=== PATIENT | female | born 1985 | race Caucasian/White ===

== ENCOUNTER → 2018-01-13 14:55 | Outpatient (CLI) | payer OTHER, SELFPAY ==
[2018-01-13 17:50] LABS: T3 Total - Triiodothyronine 1.48 ng/mL (0.6-1.81)
[2018-01-13 17:51] LABS: T4 Free Direct 0.84 ng/dL (0.76-1.46); Thyroid Stim Hormone (TSH) 2.02 uIU/mL (0.358-3.74)
== END ==
PROVIDERS: Family Provider Family Medicine; PCP Family Medicine; Visit Provider Family Medicine
DX: R53.83 Other fatigue (principal)
CPT/HCPCS: 36415; 84439; 84443; 84480

== ENCOUNTER → 2019-08-25 09:54 | Outpatient (CLI) | payer OTHER, SELFPAY ==
[2019-08-25 09:48] VITALS: BMI 35.2
--- NOTE | 2019-08-25 10:02 | RAD_ITS ---
STUDY: X-RAY CHEST REASON FOR EXAM: Female, 34 years old. COUGH X 9 DAYS WITH FEVER. NOT GETTING ANY BETTER. TECHNIQUE: PA and lateral views of the chest. COMPARISON: None. FINDINGS: The lungs are clear and expanded. There is no demonstrated pleural abnormality. Normal size heart. Normal mediastinum and segundo. Normal visualized pulmonary arteries. Normal visualized aortic arch and descending thoracic aorta. Normal visualized thoracic spine. Normal visualized ribs, clavicles, and shoulders. There is no demonstrated abnormality of the visualized soft tissue structures of the upper abdomen. RAD/Chest PA and Lateral IMPRESSION: Normal x-ray examination of the chest. Electronically Signed: Javid Fonseca, at 11:08 EDT , Service support ,
== END ==
PROVIDERS: PCP Family Medicine; Referring Provider Physician Assistant; Visit Provider Physician Assistant
DX: R05 Cough (principal)
CPT/HCPCS: 71046

== ENCOUNTER → 2023-01-06 | Outpatient (CLI) | payer OTHER, SELFPAY ==
[2023-01-06 13:53] LABS: Hemoglobin A1c 5.5 % (3.8-5.6)
[2023-01-06 13:54] LABS: Free T3 2.5 pg/mL (2.18-3.98); T4 Free Direct 0.91 ng/dL (0.76-1.46); Thyroid Stim Hormone (TSH) 1.46 uIU/mL (0.358-3.74)
[2023-01-08 14:10] LABS: Thyroglobulin Antibody 2.1 IU/mL (0.0-0.9); Thyroid Peroxidase AB < 9 IU/mL (0-34)
== END | disposition home or self-care (01) ==
PROVIDERS: PCP Family Medicine; Referring Provider Family Medicine; Visit Provider Family Medicine
DX: E03.9 Hypothyroidism, unspecified (principal); R73.01 Impaired fasting glucose
CPT/HCPCS: 83036; 84439; 84443; 84481; 86376; 86800

== ENCOUNTER → 2023-07-15 | Outpatient (CLI) | payer OTHER, SELFPAY ==
[2023-07-15 08:45] LABS: ALB/GLOB Ratio 0.8 RATIO (0.9-2.4); AST(SGOT) 25 U/L (15-37); Alanine Aminotransfer ALT/SGPT 45 U/L (13-56); Albumin, Serum 3.9 g/dL (3.2-5.0); Alkaline Phosphatase 70 U/L (45-117); Anion Gap 7 (5-15); BUN 10 mg/dL (7-18); BUN/Creat Ratio 11.7 RATIO (10-20); Calcium,Total 9.7 mg/dL (8.5-10.1); Chloride 107 mmol/L (98-107); Cholesterol 237 mg/dL (200); Creatinine, Serum 0.86 mg/dL (0.55-1.02); EST Glomerular Filtration Rate 80 mL/min (>60); Est Glom Filt Rate - Afr Amer 97 mL/min (>60); Free T3 2.6 pg/mL (2.18-3.98); Globulin 4.6 g/dL (2.2-4.2); Glucose 118 mg/dL (74-106); High Density Lipoprotein 38 mg/dL; Potassium 3.9 mmol/L (3.5-5.1); Protein, Total 8.5 g/dL (6.4-8.2); Sodium Level 138 mmol/L (136-145); T4 Free Direct 0.89 ng/dL (0.76-1.46); Thyroid Stim Hormone (TSH) 3.69 uIU/mL (0.358-3.74); Triglycerides 280 mg/dL; Very Low Density Lipoprotein 56 mg/dL (5-40)
== END | disposition home or self-care (01) ==
PROVIDERS: PCP Family Medicine; Visit Provider Family Medicine
DX: Z51.81 Encounter for therapeutic drug level monitoring (principal); E78.1 Pure hyperglyceridemia; E03.9 Hypothyroidism, unspecified
CPT/HCPCS: 36415; 80053; 80061; 84439; 84443; 84481

== ENCOUNTER → 2024-04-11 | Outpatient (CLI) | payer OTHER, SELFPAY ==
[2024-04-11 15:41] LABS: Absolute Lymphocyte Count 2.05 X10^3/uL (0.83-4.51); Absolute Neutrophil Count 5.1 X10^3/uL (2.0-7.7); Basophil# 0.03 X10^3/uL; Basophil% 0.4 % (0-1); Eosinophil# 0.18 X10^3/uL; Eosinophils% 2.2 % (0-5); Hematocrit 38.7 % (37-47); Hemoglobin 12.7 g/dL (12.0-15.0); Lymphocyte # 2.05 X10^3/ul (0.83-4.51); Lymphocyte % 25.3 % (19-41); Mean Corp Hgb Conc 32.8 g/dL (32-36); Mean Corpuscular Hgb 29.5 pg (27.0-32.0); Mean Corpuscular Volume 89.8 fL (81-99); Mean Platelet Vol. 10.6 fl (6.2-12.0); Monocyte# 0.75 X10^3/uL; Monocyte% 9.2 % (0-10); NRBC Flagged by Analyzer 0 % (0-5); Neutrophil # 5.05 X10^3/uL (2.7-7.7); Neutrophil % 62.3 % (47-70); Platelet Count 268 K/mm3 (150-450); RBC Distribution Width CV 13.3 % (11.6-14.6); RBC Distribution Width SD 43.6 fl (35.1-43.9); Red Blood Count 4.31 M/mm3 (4.2-5.4); White Blood Count 8.1 K/mm3 (4.4-11.0)
[2024-04-11 16:36] LABS: AST(SGOT) 64 U/L (15-37); Alanine Aminotransfer ALT/SGPT 118 U/L (13-56); Albumin, Serum 3.9 g/dL (3.2-5.0); Alkaline Phosphatase 57 U/L (45-117); Anion Gap 5 (5-15); BUN 14 mg/dL (7-18); BUN/Creat Ratio 17.7 RATIO (10-20); Calcium,Total 9.8 mg/dL (8.5-10.1); Chloride 108 mmol/L (98-107); Creatinine, Serum 0.79 mg/dL (0.55-1.02); EST Glomerular Filtration Rate 87 mL/min (>60); Est Glom Filt Rate - Afr Amer 105 mL/min (>60); Estradiol 91.9 pg/mL; Follicle Stimulating Hormone 2.9 mIU/mL; Free T3 2.2 pg/mL (2.18-3.98); Globulin 4.1 g/dL (2.2-4.2); Glucose 83 mg/dL (74-106); Potassium 3.9 mmol/L (3.5-5.1); Sodium Level 138 mmol/L (136-145)
[2024-04-13 16:10] LABS: DHEA Sulfate 72.7 ug/dL (57.3-279.2); Thyroglobulin Antibody < 1.0 IU/mL (0.0-0.9); Thyroid Peroxidase AB 10 IU/mL (0-34)
[2024-04-18 20:08] LABS: Age Gdln ACOG Testing 30-65 (.); HPV APTIMA, High Risk Negative (Negative)
[2024-04-19 08:41] LABS: HPV Reflexed? YES, CHARGE PATIENT
== END | disposition home or self-care (01) ==
PROVIDERS: PCP Family Medicine; Referring Provider Family Medicine; Visit Provider Family Medicine
DX: Z12.4 Encounter for screening for malignant neoplasm of cervix (principal); E03.9 Hypothyroidism, unspecified; N92.1 Excessive and frequent menstruation with irregular cycle; N93.8 Other specified abnormal uterine and vaginal bleeding; Z51.81 Encounter for therapeutic drug level monitoring
CPT/HCPCS: 36415; 80053; 82627; 82670; 83001; 83002; 84144; 84439; 84443; 84481; 85025; 86376; 86800; 87624; 88175; 82626; G0145

== ENCOUNTER → 2024-05-02 | Outpatient (CLI) | payer OTHER, SELFPAY ==
--- NOTE | 2024-05-02 12:44 | US_ITS ---
INDICATION: AUB, ENLARGED UTERUS EXAMINATION: Ultrasound US Pelvis Non-OB Complete TECHNIQUE: Transabdominal pelvic ultrasound was performed. The patient refused endovaginal study. Grayscale, spectral waveform, and color flow Doppler evaluation of the adnexa. COMPARISON: No relevant prior comparison study available FINDINGS: UTERUS: Anteverted. The uterus measures 9.1 x 5.1 x 4.6 cm. There is no uterine mass. The endometrial stripe measures 6 mm in AP diameter which is within normal limits. RIGHT OVARY: 2.9 x 2 x 1.7 cm. Non-enlarged, normal echogenicity. There is normal arterial inflow and venous outflow present in the right ovary. LEFT OVARY: 3.3 x 2 x 1.9 cm. Non-enlarged, normal echogenicity. There is normal arterial inflow and venous outflow present in the left ovary. FREE FLUID: None. The bladder is visualized and has a prevoid volume of 184 cc. US/Pelvic (Non ) IMPRESSION: Unremarkable pelvic ultrasound. Electronically Signed: Dariel Multani MD at 14:09 EST ,
== END | disposition home or self-care (01) ==
LOC: US 12:41
PROVIDERS: PCP Family Medicine; Referring Provider Family Medicine; Visit Provider Family Medicine
DX: N93.8 Other specified abnormal uterine and vaginal bleeding (principal); N92.1 Excessive and frequent menstruation with irregular cycle; N85.2 Hypertrophy of uterus
CPT/HCPCS: 76856

== ENCOUNTER 2024-07-05 16:30 | Emergency (ER) | payer OTHER, SELFPAY ==
[2024-07-05] VITALS (7 sets, daily range): BP systolic 117–133; BP diastolic 67–80; PULSE 112–117; RESP 16–24; TEMP 36.8–38.2; O2SAT 94–100; BMI 35.0
--- NOTE | 2024-07-05 16:42 | EKG12_ITS ---
Test Reason : SYNCOPE Blood Pressure : */* mmHG Vent. Rate : 115 BPM Atrial Rate : 115 BPM P-R Int : 136 ms QRS Dur : 78 ms QT Int : 450 ms P-R-T Axes : 62 53 54 degrees QTcB Int : 622 ms Critical Test Result: Long QTc Sinus tachycardia Nonspecific T wave abnormality Prolonged QT Abnormal ECG Confirmed by ROMAINE NOEL, JANETH ([id number]), visual effects editor EVE JEFFERY ([id number]) on 07/12/2024 6:51:35 AM Referred By: Confirmed By: JANETH GAVIN MD
--- NOTE | 2024-07-05 16:43 | EDS_ITS ---
HPI History of Present Illness Chief Complaint: Syncope Informant: patient and spouse/S.O. Narrative Narrative: 39-year-old female presenting to the emergency room with a chief complaint of syncope. Patient states that she has now on day 6 of a febrile illness. She thought it was the flu. Other family members are also ill. She notes nausea but no vomiting or diarrhea. She denies any rashes. She notes no dyspnea or chest pain. This morning when she awoke she was perineal syncopal but did not pass out at this afternoon and has had multiple episodes while attempting to get to the vehicle. Patient notes a generalized headache but no neck pain. She den ies sore throat. She has a history of hypothyroidism but has not taken her medication for the past week due to the illness. Patient notes she last had Tylenol about 1 hour ago. Has been difficult for her using Tylenol and Motrin to fully reduce the fever. [facility] Medical History (Updated 07/05/24 @ 19:[address] Jean Claude Goodson, DO) Hypothyroid Anemia Home Medications ?Medication ?Instructions ?Recorded ?Last Taken ?Type doxycycline hyclate 100 mg tablet 100 mg PO BID #20 tabs 08/25/19 Unknown Rx Allergy/AdvReac Type Severity Reaction Status Date / Time amoxicillin Allergy Hives Verified 07/05/24 16:40 cefaclor (From Ceclor) Allergy Hives Verified 07/05/24 16:40 Family History (Updated 08/25/19 @ 09:48 by Catarino Jose) Other Hypertension Social History (Updated 08/25/19 @ 11:19 by Herminio Tee PA, PA) Smoking Status: Never smoker ROS ROS ED Constitutional Constitutional ED: Reports chills and fever(s); Denies weight loss Eyes Eyes: Denies change in vision or diplopia ENT ENT ED: Denies ear pain, rhinorrhea or sore throat Cardiovascular Cardiovascular: Reports other Details: Syncope ; Denies chest pain, orthopnea, palpitations or racing heartbeat Respiratory/Chest Respiratory/Chest: Reports cough; Denies dyspnea or orthopnea Gastrointestinal Gastrointestinal: Reports nausea; Denies abdominal pain, diarrhea or vomiting Genitourinary Genitourinary ED: Denies dysuria, hematuria or urinary frequency Musculoskeletal Musculoskeletal: Denies arthralgias, myalgias or neck pain Integumentary Denies abscess or rash Neurologic Neurologic: Reports headache(s); Denies weakness Psychiatric Psychiatric: Denies anxiety, depression, suicidal ideation or suicidal thoughts Endocrine Endocrinology: Denies polydipsia, polyphagia or polyuria Allergic/Immunologic Allergic/Immunologic ED: Denies mouth swelling, tongue swelling or urticaria EXAM Physical Exam Const Vital Signs: 07/05/24 16:31 07/05/24 16:37 07/05/24 16:43 Temperature 100.8 F H 100.8 F H Temperature Source Oral Oral Pulse Rate 116 H 117 H Respiratory Rate 19 H 16 Respiratory Effort Normal Respiratory Pattern Normal Blood Pressure 125/80 H 125/80 H Blood Pressure Mean 95 95 Pulse Ox 95 94 Oxygen Delivery Method Room Air Room Air 07/05/24 17:37 07/05/24 18:00 07/05/24 19:02 Temperature 98.6 F 98.6 F 98.3 F Temperature Source Oral Oral Oral Pulse Rate 115 H 112 H 117 H Respiratory Rate 20 H 23 H 24 H Respiratory Effort Respiratory Pattern Blood Pressure 128/76 H 132/72 H 133/79 H Blood Pressure Mean 93 92 97 Pulse Ox 99 100 94 Oxygen Delivery Method Room Air Room Air Room Air Positive well nourished and well developed General Appearance ED: well developed HEENT Reports normocephalic, head/scalp atraumatic and moist mucous membranes Eyes PERRL and EOMs intact bilaterally Neck no lymphadenopathy, supple and no JVD Resp normal respiratory effort and clear to auscultation bilaterally Cardio regular rate, regular rhythm and no murmurs Rate: tachycardic GI normal to inspection, nondistended, normoactive bowel sounds and non-tender Palpation: soft Back/Spine no CVA tenderness and normal ROM Extremity normal to inspection General Extremety ED: Negative for edema General Extremity: Negative for edema Neuro oriented x3 and CN's II-XII intact bilaterally Sensorium / Orientation: alert Motor Exam: strength 5/5 throughout Psych mental status grossly normal Mood & Affect: Negative for depressed or tearful Skin no rashes or lesions noted and no wounds MDM MDM MDM Narrative Medical decision making narrative: Differential diagnosis includes cardiac dysrhythmia dehydration viral syndrome pneumonia electrolyte abnormalities UTI sepsis EKG shows a sinus tachycardia with a ventricular rate of 115 bpm. White count 10.9 hemoglobin of 14.3 platelet count of 258. Sodium 135 creatinine 1.10 glucose 139 TSH is 1.240 test is negative. Urinalysis shows ketones but no overt infection. AST of 49 ALT of 91 normal bilirubin. She is influenza A positive. My independent interpretation of the chest x-ray is no acute proc ess. Patient was treated with 3 L of normal saline in edition to Toradol. Her temperature has come down. She remains tachycardic. She has been able to ambulate to the bathroom. Patient feels comfortable being discharged home. Would recommend rest oral hydration History & Record Review Discussion w/independent historian: Patient Lab Data Attestation: I reviewed the patient's lab results. Labs: Laboratory Results - last 24 hr 07/05/24 07/05/24 07/05/24 16:44 16:47 18:38 WBC 10.9 RBC 4.84 Hgb 14.3 Hct 42.9 MCV 88.6 MCH 29.5 MCHC 33.3 RDW Std Deviation 41.5 RDW Coeff of Ta 12.7 Plt Count 258 MPV 10.2 Immature Gran % (Auto) 0.300 Neut % (Auto) 80.1 H Lymph % (Auto) 12.9 L [place] % (Auto) 6.3 Eos % (Auto) 0.1 Baso % (Auto) 0.3 Absolute Neuts (auto) 8.7 H Absolute Lymphs (auto) 1.40 Nucleated RBC % 0 Sodium 135 L Potassium 3.9 Chloride 100 Carbon Dioxide 26.0 Anion Gap 9 BUN 11 Creatinine 1.10 H Estim Creat Clear Calc 82.84 Est GFR (MDRD) Af Amer 72 Est GFR (MDRD) Non-Af 59 L BUN/Creatinine Ratio 10.0 Glucose 139 H Calcium 9.3 Total Bilirubin 0.70 Direct Bilirubin 0.17 AST 49 H ALT 91 H Alkaline Phosphatase 81 Total Protein 8.6 H Albumin 3.9 Globulin 4.7 H TSH 1.240 Serum , Qual NEGATIVE Urine Color Yellow Urine Clarity Clear Urine pH 6.0 Ur Specific [place] 1.015 Urine Protein 15 H Urine Glucose (UA) Normal Urine Ketones 50 H Urine Occult Blood 10 H Urine Nitrite Negative Urine Bilirubin Negative Urine Urobilinogen Normal Ur Leukocyte Esterase Negative Urine RBC 0-5 SEEN Urine WBC 0 SEEN Ur Squamous Epith Cells 0-5 SEEN Urine Bacteria RARE Urine Mucus 0 SEEN Radiography Diagnostic Testing: Clinical Impression(s) from Imaging Studies Chest X-Ray 07/05/24 17:05 IMPRESSION: No acute radiographic abnormalities. Electronically Signed: Rigoberto Ramos MD at 17:20 EST , Discharge Plan Triage Chief Complaint: Syncope ED Provider: Jean Claude Goodson Dx/Rx/DC Orders Clinical Impression: Influenza A, Acute dehydration, Syncope and collapse Instructions: ED Dehydration (Adult), ED Influenza (Adult), ED Hypotension, Orthostatic Prescriptions: No Action doxycycline hyclate 100 mg tablet 100 mg PO BID Qty: 20 0RF Primary Care Provider: Lotus Sagastume Referrals: Lotus Sagastume DO [Primary Care Provider] - As Needed Print Language: Irish
[2024-07-05] MEDS: 0.9% Normal Saline (1000mL) 1,000 ML 1000 ML IV ×2 (16:48→17:31)
[2024-07-05 16:54] LABS: Absolute Neutrophil Count 8.7 X10^3/uL (2.0-7.7); Basophil# 0.03 X10^3/uL; Basophil% 0.3 % (0-1); Eosinophil# 0.01 X10^3/uL; Eosinophils% 0.1 % (0-5); Hematocrit 42.9 % (37-47); Hemoglobin 14.3 g/dL (12.0-15.0); Lymphocyte % 12.9 % (19-41); Mean Corp Hgb Conc 33.3 g/dL (32-36); Mean Corpuscular Hgb 29.5 pg (27.0-32.0); Mean Corpuscular Volume 88.6 fL (81-99); Mean Platelet Vol. 10.2 fl (6.2-12.0); Monocyte# 0.69 X10^3/uL; Monocyte% 6.3 % (0-10); NRBC Flagged by Analyzer 0 % (0-5); Neutrophil # 8.71 X10^3/uL (2.7-7.7); Neutrophil % 80.1 % (47-70); Platelet Count 258 K/mm3 (150-450); RBC Distribution Width CV 12.7 % (11.6-14.6); RBC Distribution Width SD 41.5 fl (35.1-43.9); Red Blood Count 4.84 M/mm3 (4.2-5.4); White Blood Count 10.9 K/mm3 (4.4-11.0)
[2024-07-05 17:05] LABS: Internal QC Validated? YES +Cl - CLEAR BKGD; Pregnancy, Serum, hCG Quali. NEGATIVE Negative
--- NOTE | 2024-07-05 17:05 | RAD_ITS ---
INDICATION: syncope fever EXAMINATION/TECHNIQUE: X-RAY - XR Chest 1 View COMPARISON: 08/25/2019. FINDINGS: The lungs are clear. The cardiomediastinal silhouette is unremarkable. No pleural effusion or pneumothorax. No acute osseous abnormalities. RAD/Chest 1 View (Portable) IMPRESSION: No acute radiographic abnormalities. Electronically Signed: Rigoberto Ramos MD at 17:20 EST ,
[2024-07-05 17:13] LABS: AST(SGOT) 49 U/L (15-37); Alanine Aminotransfer ALT/SGPT 91 U/L (13-56); Albumin, Serum 3.9 g/dL (3.2-5.0); Alkaline Phosphatase 81 U/L (45-117); Anion Gap 9 (5-15); BUN 11 mg/dL (7-18); Bilirubin, Direct 0.17 mg/dL (0.00-0.30); Calcium,Total 9.3 mg/dL (8.5-10.1); Chloride 100 mmol/L (98-107); EST Glomerular Filtration Rate 59 mL/min (>60); Est Glom Filt Rate - Afr Amer 72 mL/min (>60); Estimated Creatinine Clearance 82.84 ml/min; Globulin 4.7 g/dL (2.2-4.2); Glucose 139 mg/dL (74-106); Potassium 3.9 mmol/L (3.5-5.1); Protein, Total 8.6 g/dL (6.4-8.2); Sodium Level 135 mmol/L (136-145)
[2024-07-05 18:47] LABS: Mucous, Urine 0 SEEN /hpf (<or=2+); White Blood Cells 0 SEEN /hpf (0-5)
[2024-07-05 18:56] LABS: Color, Urine Yellow (Yellow); Glucose, Dipstick Normal (Normal); Ketone-Dipstick 50 mg/dl (Negative); Leukocyte Esterase-Dipstick Negative /ul (Negative); Nitrite-Dipstick Negative (Negative); Occult Blood-Urine 10 /ul (Negative); Protein-Dipstick 15 mg/dl (Negative); Specific Gravity, Urine 1.015 (1.002-1.030); Urine Bilirubin Dipstick Negative (Negative); Urine Urobilinogen Normal (Normal)
[2024-07-05 18:57] LABS: Urine Clarity Clear (Clear)
[2024-07-05 19:08] LABS: Bacteria RARE /hpf (None Seen); Red Blood Cells-Urine 0-5 SEEN /hpf (0-5); Squamous Epithelial Cells - UA 0-5 SEEN /hpf (5-10)
[2024-07-05] MEDS: Ketorolac 30 MG/ML Syringe IV (19:21)
[2024-07-05] MEDS: 0.9% Normal Saline (1000mL) 1,000 ML 999 ML IV (19:24)
== END 2024-07-05 20:14 | disposition home or self-care (01) ==
LOC: ED 16:54
PROVIDERS: Emergency Provider Emergency Medicine; PCP Family Medicine; Visit Provider Emergency Medicine
DX: J10.1 Influenza due to other identified influenza virus with other respiratory manifestations (principal); E86.0 Dehydration; R55 Syncope and collapse; E03.9 Hypothyroidism, unspecified
CPT/HCPCS: 71045; 80048; 80076; 81001; 84443; 84703; 85025; 87040; 87631; 93005; 96361; 96374; 99284; A4216

== ENCOUNTER → 2025-03-10 | Outpatient (CLI) | payer OTHER, SELFPAY ==
--- OUTSIDE RECORDS SUMMARY | 2025-03-10 09:37 | XMS RPT_ITS | CCD ---
Author Organization [facility] Inform ion Partnership [facility] Care Team Providers Care Oven Technician Name Role Phone Dr. Lotus Sagastume Primary Care Provider Dr. Lotus Sagastume Referring Provider [phone] FRANNY Anderson Attending Provider Lotus Sagastume Attending Unavailable Malys, Lotus Primary Care Unavailable Malys, Lotus Referring Unavailable Jean Claude Goodson Attending Unavailable Malys, Lotus Primary Care Unavailable Sandra Ortega Attending Unavailable Malys, Lotus Primary Care Unavailable Malys, Lotus Referring Unavailable Malys, Lotus Primary Care Unavailable Herminio Anderson Attending Unavailable Malys, Lotus Referring Unavailable Malys, Lotus Attending Unavailable Malys, Lotus Primary Care Unavailable Allergies Allergy Classification Reported Allergen(s) Allergy Type Date of Onset Reaction(s) Facility (2 sources) Amoxicillin Drug Allergy 08-25-2019 [facility] (2 sources) Cefaclor Drug Allergy 08-25-2019 [facility] (1 source) Amoxicillin Drug Allergy 07-05-2024 [facility] Repository (1 source) Cefaclor Drug Allergy 07-05-2024 [facility] Repository Medications Current Medications Medication Drug Class(es) Dates Sig (Normalized) Sig (Original) doxycycline hyclate 100 mg oral tablet (2 sources) Tetracycline-clas s Drug Start: 08-25-2019 take 100 mg by mouth twice daily Doxycycline Hyclate Active 100 MG PO TWICE A DAY August 24, 2019 11:00pm Completed/Discontinued Medications Medication Drug Class(es) Dates Sig (Normalized) Sig (Original) ibuprofen 800 mg oral tablet (2 sources) Nonsteroidal Anti-inflammatory Drug Start: 11-19-2016 End: 08-25-2019 take 800 mg by mouth three times daily as needed Ibuprofen Discontinued 800 MG PO 3 TIMES DAILY NEEDED November 18, 2016 11:00pm August 25, 2019 8:48am Vit,Lyxq71-Rapu-X olic (2 sources) Start: 11-20-2014 End: 08-25-2019 take 1 tablet by mouth once daily Vit,Debe22-Hweh-Zd lic Discontinued 1 TABLET PO DAILY November 19, 2014 11:00pm August 25, 2019 8:48am Start: 11-20-2014 End: 08-25-2019 take 1 tablet by mouth once daily Vit,Fmvt14-Ovgg-Cqojh Discontinued 1 TABLET PO DAILY November 20, 2014 12:00am August 25, 2019 9:48am Problems Active Problems Problem Classification Problem Date Documented Da te Episodic/Chronic Chronic obstructive pulmonary disease and bronchiectasis (2 sources) Bronchitis; Translations: [Bronchitis, not specified as acute or chronic] 08-25-2019 Episodic Other female genital disorders (1 source) Other specified abnormal uterine and vaginal bleeding; Translations: [Other specified abnormal uterine and vaginal bleeding] Onset: 05-29-2024 Chronic Other nutritional; endocrine; and metabolic disorders (1 source) Obesity, unspecified; Translations: [Obesity, unspecified] Onset: 02-16-2025 Chronic Other upper respiratory infections (2 sources) Upper respiratory infection; Translations: [Acute upper respiratory infection, unspecified] 08-25-2019 Episodic Unclassified (1 source) Cough, unspecified; Translations: [Cough, unspecified] Onset: 04-13-2024 Past or Other Problems Problem Classification Problem Date Documented Da te Episodic/Chronic Other screening for suspected conditions (not mental disorders or infectious disease) (1 source) Encounter for screening for malignant neoplasm of cervix; Translations: [Encounter for screening for malignant neoplasm of cervix] Onset: 04-29-2024 Episodic Syncope (1 source) Syncope and collapse; Translations: [Syncope and collapse] Onset: 07-25-2024 Episodic Results Test Name Value Interpretation Reference Range Facility Culture, Blood (WB)on 2024 CUB Blood cultures x2, f rom two different sites No growth in 5 days. Normal [facility] Comment on above: Performed By: #### M 200.1000 #### [facility] Laboratory [address] [place], [address] CUB Blood cultures x2, f rom two different sites No growth in 5 days. Normal [facility] Comment on above: Performed By: #### M 200.1000 #### [facility] Laboratory [address] [place], [address] 12 Lead EKGon 07-05-2024 12 Lead EKG [facility] Cardiovascular Services [address] [facility] [place] [address] 12 Lead EKG 07/05/24 1634 MR#: [id number] Acct: [id number] Name: AILEEN ANGULO Rep #: [id number] : 1985 39 From: Mona Ames MD Attending Dr: Status: DEP ER Ordering Dr: Jean Claude Goodson DO Date: 07/05/24 Location: ED Sex: F C Admitted: Test Reason : SYNCOPE Blood Pressure : */* mmHG Vent. Rate : 115 BPM Atrial Rate : 115 BPM P-R Int : 136 ms QRS Dur : 78 ms QT Int : 450 ms P-R-T Axes : 62 53 54 degrees QTcB Int : 622 ms Critical Test Result: Long QTc Sinus tachycardia Nonspecific T wave abnormality Prolonged QT Abnormal ECG Confirmed by ROMAINE NOEL, JANETH ([id number]), proposal editor EVE JEFFERY ([id number]) on 07/12/2024 6:51:35 AM Referred By: Confirmed By: JANETH AMES MD 07/12/24 0651 Date Mona Ames MD CC: Dr. Jean Claude Goodson DO; Dr. Lotus Sagastume DO Signed Normal [facility] Basic Metabolic Profile (BMP )on 07-05-2024 BUN/CRE 10.0 RATIO Normal 10-20 [facility] Comment on above: Performed By: #### L 500.3400, L100.0100, L700.6800, L500.2500 #### [facility] Laboratory [address] [place], [address] CA,Total 9.3 mg/dL Normal 8.5-10.1 [facility] Comment on above: Performed By: #### L 500.3400, L100.0100, L700.6800, L500.2500 #### [facility] Laboratory [address] [place], [address] Chloride [Moles/Vol] 100 mmol/L Normal 98-[address] [facility] Comment on above: Performed By: #### L 500.3400, L100.0100, L700.6800, L500.2500 #### [facility] [address] [place], [address] CO2 [Moles/Vol] 26.0 mmol/L Normal 21.0-32.0 [facility] Comment on above: Performed By: #### L 500.3400, L100.0100, L700.6800, L500.2500 #### [facility] Laboratory [address] [place], [address] Creatinine [Mass/Vol] 1.10 mg/dL High 0.55-1.02 [facility] Comment on above: Result Comment: The validity of the calculated GFR GFRAA in patients over 70 years has not been determined. Clinical correlation is essential. Performed By: #### L 500.3400, L100.0100, L700.6800, L500.2500 #### [facility] Laboratory [address] [place], [address] ECRCL 82.84 ml/min Normal [facility] Comment on above: Performed By: #### L 500.3400, L100.0100, L700.6800, L500.2500 #### [facility] [address] [place], [address] EST GFR - AA 72 mL/min Normal >60 [facility] Comment on above: Result Comment: Afri can Sudanese GFR Calc Performed By: #### L 500.3400, L100.0100, L700.6800, L500.2500 #### [facility] [address] [place], [address] GAP 9 Normal 5-15 [facility] Comment on above: Performed By: #### L 500.3400, L100.0100, L700.6800, L500.2500 #### [facility] Laboratory [address] [place], [address] GFR/1.73 sq M.predicted among non-blacks MDRD (S/P/Bld) [Vol rate/Area] 59 mL/min/{1.73_m2} Low >60 [facility] Comment on above: Result Comment: Non- GFR Calc Performed By: #### L 500.3400, L100.0100, L700.6800, L500.2500 #### [facility] Laboratory [address] [place], [address] Glucose [Mass/Vol] 139 mg/dL High 74-106 [facility] Comment on above: Result Comment: Fast ing Glucose result greater than or equal to 126 mg/dL suggests DIABETES MELLITUS per A.D.A. criteria. Performed By: #### L 500.3400, L100.0100, L700.6800, L500.2500 #### [facility] [address] [place], [address] Potassium [Moles/Vol] 3.9 mmol/L Normal 3.5-5.1 [facility] Comment on above: Performed By: #### L 500.3400, L100.0100, L700.6800, L500.2500 #### [facility] [address] [place], [address] Sodium [Moles/Vol] 135 mmol/L Low 136-145 [facility] Comment on above: Performed By: #### L 500.3400, L100.0100, L700.6800, L500.2500 #### [facility] [address] [place], [address] Urea nitrogen [Mass/Vol] 11 mg/dL Normal 7-18 [facility] Comment on above: Performed By: #### L 500.3400, L100.0100, L700.6800, L500.2500 #### [facility] Laboratory [address] [place], [address] CBC W/Diff, Automatedon - Absolute Lymph 1.40 X10 3/uL Normal 0.83-4.51 [facility] Comment on above: Performed By: #### L 500.3400, L100.0100, L700.6800, L500.2500 #### [facility] [address] [place], [address] Absolute Neut 8.7 X10 3/uL High 2.0-7.7 [facility] Comment on above: Performed By: #### L 500.3400, L100.0100, L700.6800, L500.2500 #### [facility] [address] [place], [address] Basophils/100 WBC (Bld) 0.3 % Normal 0-1 [facility] Comment on above: Performed By: #### L 500.3400, L100.0100, L700.6800, L500.2500 #### [facility] Laboratory [address] [place], [address] Eosinophils/100 WBC (Bld) 0.1 % Normal 0-5 [facility] Comment on above: Performed By: #### L 500.3400, L100.0100, L700.6800, L500.2500 #### [facility] Laboratory [address] [place], [address] Erythrocyte distribution width (RBC) [Ratio] 12.7 % Normal 11.6-14.6 [facility] Comment on above: Performed By: #### L 500.3400, L100.0100, L700.6800, L500.2500 #### [facility] [address] [place], [address] Hematocrit (Bld) [Volume fraction] 42.9 % Normal 37-47 [facility] Comment on above: Performed By: #### L 500.3400, L100.0100, L700.6800, L500.2500 #### [facility] [address] [place], [address] Hemoglobin (Bld) [Mass/Vol] 14.3 g/dL Normal 12.0-15.0 [facility] Comment on above: Performed By: #### L 500.3400, L100.0100, L700.6800, L500.2500 #### [facility] [address] [place], [address] IG% 0.300 Normal 0.0-0.9 [facility] Comment on above: Result Comment: IG% - Immature Granulocytes (promyelocytes, myelocytes and metamyelocytes) > 1% indicates that a LEFT SHIFT is Present. Performed By: #### L 500.3400, L100.0100, L700.6800, L500.2500 #### [facility] [address] [place], [address] Lymphocytes/100 WBC (Bld) 12.9 % Low 19-41 [facility] Comment on above: Performed By: #### L 500.3400, L100.0100, L700.6800, L500.2500 #### [facility] [address] [place], [address] MCH (RBC) [Entitic mass] 29.5 pg Normal 27.0-32.0 [facility] Comment on above: Performed By: #### L 500.3400, L100.0100, L700.6800, L500.2500 #### [facility] [address] [place], [address] MCHC (RBC) [Mass/Vol] 33.3 g/dL Normal 32-36 [facility] Comment on above: Performed By: #### L 500.3400, L100.0100, L700.6800, L500.2500 #### [facility] [address] [place], [address] MCV (RBC) [Entitic vol] 88.6 fL Normal 81-99 [facility] Comment on above: Performed By: #### L 500.3400, L100.0100, L700.6800, L500.2500 #### [facility] [address] [place], [address] Monocytes/100 WBC (Bld) 6.3 % Normal 0-10 [facility] Comment on above: Performed By: #### L 500.3400, L100.0100, L700.6800, L500.2500 #### [facility] [address] [place], [address] Neutrophils/100 WBC (Bld) 80.1 % High 47-70 [facility] Comment on above: Performed By: #### L 500.3400, L100.0100, L700.6800, L500.2500 #### [facility] Laboratory [address] [place], [address] Nucleated RBC (Bld) [#/Vol] 0 10*3/uL Normal 0-5 [facility] Comment on above: Performed By: #### L 500.3400, L100.0100, L700.6800, L500.2500 #### [facility] [address] [place], [address] Platelet mean volume (Bld) [Entitic vol] 10.2 fL Normal 6.2-12.0 [facility] Comment on above: Performed By: #### L 500.3400, L100.0100, L700.6800, L500.2500 #### [facility] [address] [place], [address] Platelets (Bld) [#/Vol] 258 10*3/uL Normal 150-450 [facility] Comment on above: Performed By: #### L 500.3400, L100.0100, L700.6800, L500.2500 #### [facility] [address] [place], [address] RBC (Bld) [#/Vol] 4.84 10*6/uL Normal 4.2-5.4 [facility] Comment on above: Performed By: #### L 500.3400, L100.0100, L700.6800, L500.2500 #### [facility] [address] [place], [address] RDW SD 41.5 fl Normal 35.1-43.9 [facility] Comment on above: Performed By: #### L 500.3400, L100.0100, L700.6800, L500.2500 #### [facility] Laboratory [address] [place], [address] WBC (Bld) [#/Vol] 10.9 10*3/uL Normal 4.4-11.0 [facility] Comment on above: Performed By: #### L 500.3400, L100.0100, L700.6800, L500.2500 #### [facility] Laboratory [address] [place], [address] Chest 1 View (Portable)on Chest 1 View (Portable) [facility] Imaging Services [address] [place] [address] Chest 1 View (Portable) MR#: [id number] Acct: [id number] Name: AILEEN ANGULO Rep #: [id number] : 1985 F 39 From: Rigoberto burnham MD PCP: Dr. Lotus Sagastume DO Status: [facility] ER Study: Chest 1 View (Portable) Date of Exam: 07/05/24 Exam# [id number] Ordering Dr: Jean Claude Goodson DO [id number] INDICATION: syncope fever EXAMINATION/TECHNIQUE: X-RAY - XR Chest 1 View COMPARISON: 08/25/2019. FINDINGS: The lungs are clear. The cardiomediastinal silhouette is unremarkable. No pleural effusion or pneumothorax. No acute osseous abnormalities. RAD/Chest 1 View (Portable) IMPRESSION: No acute radiographic abnormalities. Electronically Signed: Rigoberto Ramos MD at 17:20 EST , CC: Dr. Jean Claude Goodson DO; Dr. Lotus Sagastume DO [place]: Signed Normal [facility] Emergency Department Summary on 07-05-2024 Emergency Department Summary [facility] Medical Records Department [address] [place] [address] Emergency Department Summary 07/05/24 MR#: [id number] Acct: [id number] Name: AILEEN ANGULO Rep #: [id number] : 1985 39 From: Jean Claude Goodson DO PCP: Dr. Lotus Sagastume DO Status:[facility] ER Location: ED HPI History of Present Illness Chief Complaint: Syncope Informant: patient and spouse/S.O. Narrative Narrative: 39-year-old female presenting to the emergency room with a chief complaint of syncope. Patient states that she has now on day 6 of a febrile illness. She thought it was the flu. Other family members are also ill. She notes nausea but no vomiting or diarrhea. She denies any rashes. She notes no dyspnea or chest pain. This morning when she awoke she was perineal syncopal but did not pass out at this afternoon and has had multiple episodes while attempting to get to the vehicle. Patient notes a generalized headache but no neck pain. She denies sore throat. She has a history of hypothyroidism but has not taken her medication for the past week due to the illness. Patient notes she last had Tylenol about 1 hour ago. Has been difficult for her using Tylenol and Motrin to fully reduce the fever. [facility] Medical History (Updated 07/05/24 @ 19:[address] Jean Claude Goodson, DO) Hypothyroid Anemia Home Medications ???Medication ???Instructions ???Recorded ???Last Taken ???Type doxycycline hyclate 100 mg tablet 100 mg PO BID #20 tabs 08/25/19 Unknown Rx Allergy/AdvReac Type Severity Reaction Status Date / Time amoxicillin Allergy Hives Verified 07/05/24 16:40 cefaclor (From [facility]) Allergy Hives Verified 07/05/24 16:40 Family History (Updated 08/25/19 @ 09:48 by Catarino Jose) Other Hypertension Social History (Updated 08/25/19 @ 11:19 by Herminio BLANTON, PA) Smoking Status: Never smoker ROS ROS ED Constitutional Constitutional ED: Reports chills and fever(s); Denies weight loss Eyes Eyes: Denies change in vision or diplopia ENT ENT ED: Denies ear pain, rhinorrhea or sore throat Cardiovascular Cardiovascular: Reports other Details: Syncope ; Denies chest pain, orthopnea, palpitations or racing heartbeat Respiratory/Chest Respiratory/Chest: Reports cough; Denies dyspnea or orthopnea Gastrointestinal Gastrointestinal: Reports nausea; Denies abdominal pain, diarrhea or vomiting Genitourinary Genitourinary ED: Denies dysuria, hematuria or urinary frequency Musculoskeletal Musculoskeletal: Denies arthralgias, myalgias or neck pain Integumentary Denies abscess or rash Neurologic Neurologic: Reports headache(s); Denies weakness Psychiatric Psychiatric: Denies anxiety, depression, suicidal ideation or suicidal thoughts Endocrine Endocrinology: Denies polydipsia, polyphagia or polyuria Allergic/Immunologic Allergic/Immunologic ED: Denies mouth swelling, tongue swelling or urticaria EXAM Physical Exam Const Vital Signs: 07/05/24 16:31 07/05/24 16:37 07/05/24 16:43 Temperature 100.8 F H 100.8 F H Temperature Source Oral Oral Pulse Rate 116 H 117 H Respiratory Rate 19 H 16 Respiratory Effort Normal Respiratory Pattern Normal Blood Pressure 125/80 H 125/80 H Blood Pressure Mean 95 95 Pulse Ox 95 94 Oxygen Delivery Method Room Air Room Air 07/05/24 17:37 07/05/24 18:00 07/05/24 19:02 Temperature 98.6 F 98.6 F 98.3 F Temperature Source Oral Oral Oral Pulse Rate 115 H 112 H 117 H Respiratory Rate 20 H 23 H 24 H Respiratory Effort Respiratory Pattern Blood Pressure 128/76 H 132/72 H 133/79 H Blood Pressure Mean 93 92 97 Pulse Ox 99 100 94 Oxygen Delivery Method Room Air Room Air Room Air Positive well nourished and well developed General Appearance ED: well developed HEENT Reports normocephalic, head/scalp atraumatic and moist mucous membranes Eyes PERRL and EOMs intact bilaterally Neck no lymphadenopathy, supple and no JVD Resp normal respiratory effort and clear to auscultation bilaterally Cardio regular rate, regular rhythm and no murmurs Rate: tachycardic GI normal to inspection, nondistended, normoactive bowel sounds and non-tender Palpation: soft Back/Spine no CVA tenderness and normal ROM Extremity normal to inspection General Extremety ED: Negative for edema General Extremity: Negative for edema Neuro oriented x3 and CN's II-XII intact bilaterally Sensorium / Orientation: alert Motor Exam: strength 5/5 throughout Psych mental status grossly normal Mood Affect: Negative for depressed or tearful Skin no rashes or lesions noted and no wounds MDM MDM MDM Narrative Medical decision making narrative: Differential diagnosis includes cardiac dysrhythmia dehydration viral syndrome pneumonia electrolyte abnormalities UTI sepsis (more content not included)... Normal [facility] Liver Profileon 07-05-2024 Albumin [Mass/Vol] 3.9 g/dL Normal 3.2-5.0 [facility] Comment on above: Performed By: #### M 200.1000 #### [facility] Laboratory [address] [place], [place], [id number] ALK P 81 U/L Normal 45-117 [facility] Comment on above: Performed By: #### M 200.1000 #### [facility] [address] [place], [address] ALT [Catalytic activity/Vol] 91 U/L High 13-56 [facility] Comment on above: Performed By: #### M 200.1000 #### [facility] Laboratory [address] [place], [address] AST [Catalytic activity/Vol] 49 U/L High 15-37 [facility] Comment on above: Performed By: #### M 200.1000 #### [facility] Laboratory [address] [place], [address] Bilirubin [Mass/Vol] 0.70 mg/dL Normal 0.20-1.[address] [facility] Comment on above: Result Comment: For patients on eltrombopag therapy, use of Dimension Naches TBIL is not recommended. Performed By: #### M 200.1000 #### [facility] [address] [place], [address] Bilirubin.direct [Mass/Vol] 0.17 mg/dL Normal 0.00-0.30 [facility] Comment on above: Performed By: #### M 200.1000 #### [facility] Laboratory [address] [place], [address] Globulin (S) [Mass/Vol] 4.7 g/dL High 2.2-4.2 [facility] Comment on above: Performed By: #### M 200.1000 #### [facility] [address] [place], [address] T PROT 8.6 g/dL High 6.4-8.2 [facility] Comment on above: Performed By: #### M 200.1000 #### [facility] Laboratory [address] [place], [address] M100.678on 07-05-2024 M100.678 Pending SARS-CoV-2 (COVID 19) Negative INFLUENZA A A Positive A INFLUENZA B Negative RSV PCR Negative INFLUENZAE A Normal [facility] Comment on above: Performed By: #### M 100.678 #### [facility] Laboratory [address] [place], [address] ,Serum,hCG Quali.on 07-05-2024 HCG, SERUM QUAL Negative Normal [facility] Comment on above: Performed By: #### L 500.3400, L100.0100, L700.6800, L500.2500 #### [facility] [address] [place], [address] Thyroid Stim Hormone (TSH)on 07-05-2024 TSH 1.240 uIU/mL Normal 0.358-3.740 [facility] Comment on above: Performed By: #### M 100.678 #### [facility] Laboratory [address] [place], [address] Urinalysis, Completeon 07-05 BACTERIA RARE Normal None Seen [facility] Comment on above: Order Comment: CLEAN CATCH Performed By: #### M 100.678 #### [facility] [address] [place], [address] EPI,SQUAMOUS 0-5 SEEN Normal 5-10 [facility] Comment on above: Order Comment: CLEAN CATCH Performed By: #### M 100.678 #### [facility] [address] [place], [address] RBC 0-5 SEEN Normal 0-5 [facility] Comment on above: Order Comment: CLEAN CATCH Performed By: #### M 100.678 #### [facility] [address] [place], [address] Mucus Ql (Urine sed) 0 SEEN Normal [facility] Comment on above: Order Comment: CLEAN CATCH Performed By: #### M 100.678 #### [facility] [address] [place], [place], [address] WBC 0 SEEN Normal 0-5 [facility] Comment on above: Order Comment: CLEAN CATCH Performed By: #### M 100.678 #### [facility] Laboratory [address] [place], [place], [address] Pelvic (Non )on 04-15 Pelvic (Non ) [facility] Imaging Services [address] [place] [address] Pelvic (Non ) MR#: [id number] Acct: [id number] Name: AILEEN ANGULO Rep #: [id number] : 1985 F 39 From: Dariel Granda PCP: Dr. Lotus Sagastume DO Status: REG CLI Study: Pelvic (Non ) Date of Exam: 05/02/24 Exam# [id number] Ordering Dr: Lotus Sagastume DO [id number] INDICATION: AUB, ENLARGED UTERUS EXAMINATION: Ultrasound US Pelvis Non-OB Complete TECHNIQUE: Transabdominal pelvic ultrasound was performed. The patient refused endovaginal study. Grayscale, spectral waveform, and color flow Doppler evaluation of the adnexa. COMPARISON: No relevant prior comparison study available FINDINGS: UTERUS: Anteverted. The uterus measures 9.1 x 5.1 x 4.6 cm. There is no uterine mass. The endometrial stripe measures 6 mm in AP diameter which is within normal limits. RIGHT OVARY: 2.9 x 2 x 1.7 cm. Non-enlarged, normal echogenicity. There is normal arterial inflow and venous outflow present in the right ovary. LEFT OVARY: 3.3 x 2 x 1.9 cm. Non-enlarged, normal echogenicity. There is normal arterial inflow and venous outflow present in the left ovary. FREE FLUID: None. The bladder is visualized and has a prevoid volume of 184 cc. US/Pelvic (Non ) IMPRESSION: Unremarkable pelvic ultrasound. Electronically Signed: Dariel Multani MD at 14:09 EST , CC: Dr. Lotus Sagastume, [place]: Signed Normal [facility] PAP IG w/Reflex HPV GDLNon 1 06-18-2023 ADEQ Comment Normal . [facility] Comment on above: Order Comment: Speci men Comment: No. of containers..01 ThinPrep Vial Result Comment: Sati sfactory for evaluation. Endocervical and/or squamous metaplastic cells (endocervical component) are present. Performed By: #### M 100.678 #### [facility] [address] [place], [address] Age Gdln ACOG T 30-65 Normal . [facility] Comment on above: Order Comment: Speci men Comment: No. of containers..01 ThinPrep Vial Performed By: #### M 100.678 #### [facility] [address] [place], [address] COMM . Normal . [facility] Comment on above: Order Comment: Speci men Comment: No. of containers..01 ThinPrep Vial Performed By: #### M 100.678 #### [facility] [address] [place], [address] COMMENT Comment Normal . [facility] Comment on above: Order Comment: Speci men Comment: No. of containers..01 ThinPrep Vial Result Comment: This liquid based ThinPrep(R) pap test was screened with the use of an image guided system. Performed By: #### M 100.678 #### [facility] [address] [place], [address] DIAG Comment Normal . [facility] Comment on above: Order Comment: Speci men Comment: No. of containers..01 ThinPrep Vial Result Comment: NEGA TIVE FOR INTRAEPITHELIAL LESION OR MALIGNANCY. Performed By: #### M 100.678 #### [facility] [address] [place], [place], [id number] HPV APTIMA, HR Negative Normal Negative [facility] Comment on above: Order Comment: Speci men Comment: No. of containers..01 ThinPrep Vial Result Comment: This nucleic acid amplification test detects fourteen high- risk HPV types (16,18,31,33,35,39,45,51,52,56,58,59,66,68) without differentiation. Performed By: #### M 100.678 #### [facility] [address] [place], [address] HPV Radha Rfx Comment Normal . [facility] Comment on above: Order Comment: Speci men Comment: No. of containers..01 ThinPrep Vial Result Comment: Crit ertae not met, HPV Genotype not performed. Performed at: = - [facility] [id number] Spray Cementer: Marlena Wakefield MD, Phone: [phone] Performed at: - [facility] [id number] Spray Cementer: Marlena Wakefield MD, Phone: [phone] Performed By: #### M 100.678 #### [facility] [address] [place], [place], [id number] PAPSMR Comment Normal . [facility] Comment on above: Order Comment: Speci men Comment: No. of containers..01 ThinPrep Vial Result Comment: The Pap smear is a screening test designed to aid in the detection of premalignant and malignant conditions of the uterine cervix. It is not a diagnostic procedure and should not be used as the sole means of detecting cervical cancer. Both false-positive and false-negative reports do occur. Performed By: #### M 100.678 #### [facility] [address] [place], [place], [id number] PERFORM Comment Normal . [facility] Comment on above: Order Comment: Speci men Comment: No. of containers..01 ThinPrep Vial Result Comment: Joslyn Boland, Pulper (ASCP) Performed By: #### M 100.678 #### [facility] [address] [place], [address] DHEA Sulfateon 04-13-2024 DHEA SULFATE 72.7 ug/dL Normal 57.3-279.2 [facility] Comment on above: Order Comment: N Performed By: #### M 100.678 #### [facility] [address] [place], [address] PROGESTERONE 4317on 04-13-20 24 PROGESTERONE 11.0 ng/mL Normal . [facility] Comment on above: Order Comment: N Result Comment: Foll icular phase 0.1 - 0.9 Luteal phase 1.8 - 23.9 Ovulation phase 0.1 - 12.0 First trimester 11.0 - 44.3 Second trimester 25.4 - 83.3 Third trimester 58.7 - 214.0 Postmenopausal 0.0 - 0.1 Performed at: [facility] [id number] Spray Cementer: Cam De Souza PhD, Phone: [phone] Performed By: #### M 200.1000 #### [facility] [address] [place], [address] Thyroid Antibodieson 024 TG AB < 1.0 Normal 0.0-0.9 [facility] Comment on above: Order Comment: N Result Comment: Thyr oglobulin Antibody measured by [employer] Methodology It should be noted that the presence of thyroglobulin antibodies may not be pathogenic nor diagnostic, especially at very low levels. The assay siding coreboard inspector has found that four percent of individuals without evidence of thyroid disease or autoimmunity will have positive TgAb levels up to 4 IU/mL. Performed at: [facility] [id number] Spray Cementer: Cam De Souza PhD, Phone: [phone] Performed By: #### M 100.678 #### [facility] [address] [place], [address] THYR PEROX AB 10 IU/mL Normal 0-34 [facility] Comment on above: Order Comment: N Performed By: #### M 100.678 #### [facility] [address] [place], [address] Office Visit Reporton [address] [facility] [address] [place] [address] OFFICE VISIT Date of Service: 04/12/24 MR#: [id number] Acct: [id number] Patient: AILEEN ANGULO Rep #: [id number] : 1985 Provider: FRANNY Hsu Age/Sex: 38/F [place] [facility] [place] Status: Signed Intake Vital Signs 08/25/19 09:46 Height 5 ft 7.5 in Intake Visit Reasons: COVID-19 Chief Complaint: Fever, cough Allergies amoxicillin Allergy (Verified 08/25/19 09:47) Hives cefaclor (From Ceclor) Allergy (Verified 08/25/19 09:47) Hives Results POC Cepheid JEFF Cov-2 PCR EMP POC Cepheid JEFF Cov-2 PCR EMP Not Detected Last Edit by Bhumika Meyer on 04/12/24 09:31 negative for flu a b Assessment and Plan Assessment and Plan Orders: Orders POC Cepheid JEFF Cov-2 PCR EMP Today R05.9 - Cough, unspecified 04/12/24 1025 Date Herminio Herreraignsteve Signature: Date (if applicable) CC: Normal [facility] CBC W/Diff, Automatedon 03-16 Absolute Lymph 2.05 X10 3/uL Normal 0.83-4.51 [facility] Comment on above: Performed By: #### M 200.1000 #### [facility] [address] [place], [address] Absolute Neut 5.1 X10 3/uL Normal 2.0-7.7 [facility] Comment on above: Performed By: #### M 200.1000 #### [facility] [address] [place], [address] Basophils/100 WBC (Bld) 0.4 % Normal 0-1 [facility] Comment on above: Performed By: #### M 200.1000 #### [facility] [address] [place], [address] Eosinophils/100 WBC (Bld) 2.2 % Normal 0-5 [facility] Comment on above: Performed By: #### M 200.1000 #### [facility] [address] [place], [address] Erythrocyte distribution width (RBC) [Ratio] 13.3 % Normal 11.6-14.6 [facility] Comment on above: Performed By: #### M 200.1000 #### [facility] [address] [place], [address] Hematocrit (Bld) [Volume fraction] 38.7 % Normal 37-47 [facility] Comment on above: Performed By: #### M 200.1000 #### [facility] [address] [place], [address] Hemoglobin (Bld) [Mass/Vol] 12.7 g/dL Normal 12.0-15.0 [facility] Comment on above: Performed By: #### M 200.1000 #### [facility] [address] [place], [address] IG% 0.600 Normal 0.0-0.9 [facility] Comment on above: Result Comment: IG% - Immature Granulocytes (promyelocytes, myelocytes and metamyelocytes) > 1% indicates that a LEFT SHIFT is Present. Performed By: #### M 200.1000 #### [facility] [address] [place], [address] Lymphocytes/100 WBC (Bld) 25.3 % Normal 19-41 [facility] Comment on above: Performed By: #### M 200.1000 #### [facility] [address] [place], [address] MCH (RBC) [Entitic mass] 29.5 pg Normal 27.0-32.0 [facility] Comment on above: Performed By: #### M 200.1000 #### [facility] [address] [place], [address] MCHC (RBC) [Mass/Vol] 32.8 g/dL Normal 32-36 [facility] Comment on above: Performed By: #### M 200.1000 #### [facility] [address] [place], [address] MCV (RBC) [Entitic vol] 89.8 fL Normal 81-99 [facility] Comment on above: Performed By: #### M 200.1000 #### [facility] [address] [place], [address] Monocytes/100 WBC (Bld) 9.2 % Normal 0-10 [facility] Comment on above: Performed By: #### M 200.1000 #### [facility] [address] [place], [address] Neutrophils/100 WBC (Bld) 62.3 % Normal 47-70 [facility] Comment on above: Performed By: #### M 200.1000 #### [facility] [address] [place], [address] Nucleated RBC (Bld) [#/Vol] 0 10*3/uL Normal 0-5 [facility] Comment on above: Performed By: #### M 200.1000 #### [facility] [address] [place], [address] Platelet mean volume (Bld) [Entitic vol] 10.6 fL Normal 6.2-12.0 [facility] Comment on above: Performed By: #### M 200.1000 #### [facility] [address] [place], [address] Platelets (Bld) [#/Vol] 268 10*3/uL Normal 150-450 [facility] Comment on above: Performed By: #### M 200.1000 #### [facility] [address] [place], [address] RBC (Bld) [#/Vol] 4.31 10*6/uL Normal 4.2-5.4 [facility] Comment on above: Performed By: #### M 200.1000 #### [facility] [address] [place], [address] RDW SD 43.6 fl Normal 35.1-43.9 [facility] Comment on above: Performed By: #### M 200.1000 #### [facility] [address] [place], [address] WBC (Bld) [#/Vol] 8.1 10*3/uL Normal 4.4-11.0 [facility] Comment on above: Performed By: #### M 200.1000 #### [facility] [address] [place], [address] Comprehensive Metabolic Prof ilayaz 04-11-2024 Albumin [Mass/Vol] 3.9 g/dL Normal 3.2-5.0 [facility] Comment on above: Order Comment: CYTOL OGY INFORMATION:- CLINICAL INFORMATION: ANNUAL - Non - DATE LMP/MENOPAUSE: N/A- COLLECTION VIAL: Thin Prep Vial- SCRAP PREPARATION SUPERVISOR SOURCE: CERVICAL/ENDOCERVICAL- COLLECTION TECHNIQUE: BRUSH/SPATULAN Performed By: #### M 200.1000 #### [facility] [address] [place], [address] Albumin/Globulin [Mass ratio] 1.0 {ratio} Normal 0.9-2.4 [facility] Comment on above: Order Comment: CYTOL OGY INFORMATION:- CLINICAL INFORMATION: ANNUAL - Non - DATE LMP/MENOPAUSE: N/A- COLLECTION VIAL: Thin Prep Vial- SCRAP PREPARATION SUPERVISOR SOURCE: CERVICAL/ENDOCERVICAL- COLLECTION TECHNIQUE: BRUSH/SPATULAN Performed By: #### M 200.1000 #### [facility] [address] [place], [address] ALK P 57 U/L Normal 45-117 [facility] Comment on above: Order Comment: CYTOL OGY INFORMATION:- CLINICAL INFORMATION: ANNUAL - Non - DATE LMP/MENOPAUSE: N/A- COLLECTION VIAL: Thin Prep Vial- SCRAP PREPARATION SUPERVISOR SOURCE: CERVICAL/ENDOCERVICAL- COLLECTION TECHNIQUE: BRUSH/SPATULAN Performed By: #### M 200.1000 #### [facility] [address] [place], [address] ALT [Catalytic activity/Vol] 118 U/L High 13-56 [facility] Comment on above: Order Comment: CYTOL OGY INFORMATION:- CLINICAL INFORMATION: ANNUAL - Non - DATE LMP/MENOPAUSE: N/A- COLLECTION VIAL: Thin Prep Vial- SCRAP PREPARATION SUPERVISOR SOURCE: CERVICAL/ENDOCERVICAL- COLLECTION TECHNIQUE: BRUSH/SPATULAN Performed By: #### M 200.1000 #### [facility] [address] [place], [address] AST [Catalytic activity/Vol] 64 U/L High 15-37 [facility] Comment on above: Order Comment: CYTOL OGY INFORMATION:- CLINICAL INFORMATION: ANNUAL - Non - DATE LMP/MENOPAUSE: N/A- COLLECTION VIAL: Thin Prep Vial- SCRAP PREPARATION SUPERVISOR SOURCE: CERVICAL/ENDOCERVICAL- COLLECTION TECHNIQUE: BRUSH/SPATULAN Performed By: #### M 200.1000 #### [facility] [address] [place], [address] Bilirubin [Mass/Vol] 0.40 mg/dL Normal 0.20-1.[address] [facility] Comment on above: Order Comment: CYTOL OGY INFORMATION:- CLINICAL INFORMATION: ANNUAL - Non - DATE LMP/MENOPAUSE: N/A- COLLECTION VIAL: Thin Prep Vial- SCRAP PREPARATION SUPERVISOR SOURCE: CERVICAL/ENDOCERVICAL- COLLECTION TECHNIQUE: BRUSH/SPATULAN Result Comment: For patients on eltrombopag therapy, use of Dimension [place]aches TBIL is not recommended. Performed By: #### M 200.1000 #### [facility] [address] [place], [place], [phone] (259) BUN/CRE 17.7 RATIO Normal 10-20 [facility] Comment on above: Order Comment: CYTOL OGY INFORMATION:- CLINICAL INFORMATION: ANNUAL - Non - DATE LMP/MENOPAUSE: N/A- COLLECTION VIAL: Thin Prep Vial- SCRAP PREPARATION SUPERVISOR SOURCE: CERVICAL/ENDOCERVICAL- COLLECTION TECHNIQUE: BRUSH/SPATULAN Performed By: #### M 200.1000 #### [facility] [address] [place], [place], [phone] (740) CA,Total 9.8 mg/dL Normal 8.5-10.1 [facility] Comment on above: Order Comment: CYTOL OGY INFORMATION:- CLINICAL INFORMATION: ANNUAL - Non - DATE LMP/MENOPAUSE: N/A- COLLECTION VIAL: Thin Prep Vial- SCRAP PREPARATION SUPERVISOR SOURCE: CERVICAL/ENDOCERVICAL- COLLECTION TECHNIQUE: BRUSH/SPATULAN Performed By: #### M 200.1000 #### [facility] [address] [place], [place], [phone] (396) Chloride [Moles/Vol] 108 mmol/L High 98-[address] [facility] Comment on above: Order Comment: CYTOL OGY INFORMATION:- CLINICAL INFORMATION: ANNUAL - Non - DATE LMP/MENOPAUSE: N/A- COLLECTION VIAL: Thin Prep Vial- SCRAP PREPARATION SUPERVISOR SOURCE: CERVICAL/ENDOCERVICAL- COLLECTION TECHNIQUE: BRUSH/SPATULAN Performed By: #### M 200.1000 #### [facility] [address] [place], [address] CO2 [Moles/Vol] 25.0 mmol/L Normal 21.0-32.0 [facility] Comment on above: Order Comment: CYTOL OGY INFORMATION:- CLINICAL INFORMATION: ANNUAL - Non - DATE LMP/MENOPAUSE: N/A- COLLECTION VIAL: Thin Prep Vial- SCRAP PREPARATION SUPERVISOR SOURCE: CERVICAL/ENDOCERVICAL- COLLECTION TECHNIQUE: BRUSH/SPATULAN Performed By: #### M 200.1000 #### [facility] [address] [place], [place], [address] Creatinine [Mass/Vol] 0.79 mg/dL Normal 0.55-1.02 [facility] Comment on above: Order Comment: CYTOL OGY INFORMATION:- CLINICAL INFORMATION: ANNUAL - Non - DATE LMP/MENOPAUSE: N/A- COLLECTION VIAL: Thin Prep Vial- SCRAP PREPARATION SUPERVISOR SOURCE: CERVICAL/ENDOCERVICAL- COLLECTION TECHNIQUE: BRUSH/SPATULAN Result Comment: The validity of the calculated GFR GFRAA in patients over 70 years has not been determined. Clinical correlation is essential. Performed By: #### M 200.1000 #### [facility] [address] [place], [place], [address] EST GFR - AA 105 mL/min Normal >60 [facility] Comment on above: Order Comment: CYTOL OGY INFORMATION:- CLINICAL INFORMATION: ANNUAL - Non - DATE LMP/MENOPAUSE: N/A- COLLECTION VIAL: Thin Prep Vial- SCRAP PREPARATION SUPERVISOR SOURCE: CERVICAL/ENDOCERVICAL- COLLECTION TECHNIQUE: BRUSH/SPATULAN Result Comment: Rufino can Sudanese GFR Calc Performed By: #### M 200.1000 #### [facility] [address] [place], [address] GAP 5 Normal 5-15 [facility] Comment on above: Order Comment: CYTOL OGY INFORMATION:- CLINICAL INFORMATION: ANNUAL - Non - DATE LMP/MENOPAUSE: N/A- COLLECTION VIAL: Thin Prep Vial- SCRAP PREPARATION SUPERVISOR SOURCE: CERVICAL/ENDOCERVICAL- COLLECTION TECHNIQUE: BRUSH/SPATULAN Performed By: #### M 200.1000 #### [facility] [address] [place], [place], [phone] (643) GFR/1.73 sq M.predicted among non-blacks MDRD (S/P/Bld) [Vol rate/Area] 87 mL/min/{1.73_m2} Normal >60 [facility] Comment on above: Order Comment: CYTOL OGY INFORMATION:- CLINICAL INFORMATION: ANNUAL - Non - DATE LMP/MENOPAUSE: N/A- COLLECTION VIAL: Thin Prep Vial- SCRAP PREPARATION SUPERVISOR SOURCE: CERVICAL/ENDOCERVICAL- COLLECTION TECHNIQUE: BRUSH/SPATULAN Result Comment: Non- GFR Calc Performed By: #### M 200.1000 #### [facility] [address] [place], [address] Globulin (S) [Mass/Vol] 4.1 g/dL Normal 2.2-4.2 [facility] Comment on above: Order Comment: CYTOL OGY INFORMATION:- CLINICAL INFORMATION: ANNUAL - Non - DATE LMP/MENOPAUSE: N/A- COLLECTION VIAL: Thin Prep Vial- SCRAP PREPARATION SUPERVISOR SOURCE: CERVICAL/ENDOCERVICAL- COLLECTION TECHNIQUE: BRUSH/SPATULAN Performed By: #### M 200.1000 #### [facility] [address] [place], [address] Glucose [Mass/Vol] 83 mg/dL Normal 74-106 [facility] Comment on above: Order Comment: CYTOL OGY INFORMATION:- CLINICAL INFORMATION: ANNUAL - Non - DATE LMP/MENOPAUSE: N/A- COLLECTION VIAL: Thin Prep Vial- SCRAP PREPARATION SUPERVISOR SOURCE: CERVICAL/ENDOCERVICAL- COLLECTION TECHNIQUE: BRUSH/SPATULAN Performed By: #### M 200.1000 #### [facility] [address] [place], [address] Potassium [Moles/Vol] 3.9 mmol/L Normal 3.5-5.1 [facility] Comment on above: Order Comment: CYTOL OGY INFORMATION:- CLINICAL INFORMATION: ANNUAL - Non - DATE LMP/MENOPAUSE: N/A- COLLECTION VIAL: Thin Prep Vial- SCRAP PREPARATION SUPERVISOR SOURCE: CERVICAL/ENDOCERVICAL- COLLECTION TECHNIQUE: BRUSH/SPATULAN Performed By: #### M 200.1000 #### [facility] [address] [place], [address] Sodium [Moles/Vol] 138 mmol/L Normal 136-145 [facility] Comment on above: Order Comment: CYTOL OGY INFORMATION:- CLINICAL INFORMATION: ANNUAL - Non - DATE LMP/MENOPAUSE: N/A- COLLECTION VIAL: Thin Prep Vial- SCRAP PREPARATION SUPERVISOR SOURCE: CERVICAL/ENDOCERVICAL- COLLECTION TECHNIQUE: BRUSH/SPATULAN Performed By: #### M 200.1000 #### [facility] [address] [place], [place], [address] T PROT 8.0 g/dL Normal 6.4-8.2 [facility] Comment on above: Order Comment: CYTOL OGY INFORMATION:- CLINICAL INFORMATION: ANNUAL - Non - DATE LMP/MENOPAUSE: N/A- COLLECTION VIAL: Thin Prep Vial- SCRAP PREPARATION SUPERVISOR SOURCE: CERVICAL/ENDOCERVICAL- COLLECTION TECHNIQUE: BRUSH/SPATULAN Performed By: #### M 200.1000 #### [facility] [address] [place], [place], [address] Urea nitrogen [Mass/Vol] 14 mg/dL Normal 7-18 [facility] Comment on above: Order Comment: CYTOL OGY INFORMATION:- CLINICAL INFORMATION: ANNUAL - Non - DATE LMP/MENOPAUSE: N/A- COLLECTION VIAL: Thin Prep Vial- SCRAP PREPARATION SUPERVISOR SOURCE: CERVICAL/ENDOCERVICAL- COLLECTION TECHNIQUE: BRUSH/SPATULAN Performed By: #### M 200.1000 #### [facility] [address] [place], [place], [address] Estradiolon 04-11-2024 ESTRADIOL 91.9 pg/mL Normal [facility] Comment on above: Order Comment: CYTOL OGY INFORMATION:- CLINICAL INFORMATION: ANNUAL - Non - DATE LMP/MENOPAUSE: N/A- COLLECTION VIAL: Thin Prep Vial- SCRAP PREPARATION SUPERVISOR SOURCE: CERVICAL/ENDOCERVICAL- COLLECTION TECHNIQUE: BRUSH/SPATULAN Result Comment: NORM AL REFERENCE RANGES FEMALE FOLLICULAR 21.4 - 164.8 pg/mL MID-CYCLE PEAK 49.9 - 367.2 pg/mL LUTEAL 40.2 - 259.0 pg/mL POST-MENOPAUSAL ON MHT <11.0 - 462.1 pg/mL NOT ON MHT <11.0 - 58.3 pg/mL MALE <11.0 - 52.5 pg/mL NOTE: [employer] HAS CONFIRMED THE DRUG FULVETRANT (FASLODEX) MAY CAUSE FALSELY ELEVATED ESTRADIOL RESULTS WHEN USING THIS TEST METHOD. IF PATIENT IS TAKING FULVESTRANT AN ALTERNATIVE METHOD SHOULD BE USED TO DETERMINE ESTRADIOL CONCENTRATION. Performed By: #### M 200.1000 #### [facility] [address] [place], [place], [id number] Follicle Stimulating Hormone on 04-11-2024 FSH 2.9 mIU/mL Normal [facility] Comment on above: Order Comment: CYTOL OGY INFORMATION:- CLINICAL INFORMATION: ANNUAL - Non - DATE LMP/MENOPAUSE: N/A- COLLECTION VIAL: Thin Prep Vial- SCRAP PREPARATION SUPERVISOR SOURCE: CERVICAL/ENDOCERVICAL- COLLECTION TECHNIQUE: BRUSH/SPATULAN Result Comment: NORMAL REFERENCE RANGES FEMALE FOLLICULAR 2.3 - 12.6 mIU/mL MID-CYCLE PEAK 5.2 - 17.5 mIU/mL LUTEAL 1.7 - 12.9 mIU/mL POST-MENOPAUSAL ON MHT 5.9 - 72.8 mIU/mL NOT ON MHT 12.7 - 132.2 mlU/mL MALE 0.7 - 10.8 mIU/mL Performed By: #### M 200.1000 #### [facility] [address] [place], [place], [id number] Free T3on 04-11-2024 Free T3 [Mass/Vol] 2.2 pg/mL Normal 2.18-3.98 [facility] Comment on above: Order Comment: CYTOL OGY INFORMATION:- CLINICAL INFORMATION: ANNUAL - Non - DATE LMP/MENOPAUSE: N/A- COLLECTION VIAL: Thin Prep Vial- SCRAP PREPARATION SUPERVISOR SOURCE: CERVICAL/ENDOCERVICAL- COLLECTION TECHNIQUE: BRUSH/SPATULAN Performed By: #### M 200.1000 #### [facility] [address] [place], [place], [id number] Luteinizing Hormoneon 2023 LH 6.0 mIU/mL Normal [facility] Comment on above: Order Comment: CYTOL OGY INFORMATION:- CLINICAL INFORMATION: ANNUAL - Non - DATE LMP/MENOPAUSE: N/A- COLLECTION VIAL: Thin Prep Vial- SCRAP PREPARATION SUPERVISOR SOURCE: CERVICAL/ENDOCERVICAL- COLLECTION TECHNIQUE: BRUSH/SPATULAN Result Comment: NORMAL REFERENCE RANGES FEMALE FOLLICULAR 1.9 - 26.2 mIU/mL MID-CYCLE PEAK 22.8 - 76.1 mIU/mL LUTEAL 0.6 - 16.6 mIU/mL POST-MENOPAUSAL ON MHT 1.1 - 52.4 mIU/mL NOT ON MHT 8.6 - 61.8 mIU/mL MALE 1.2 - 10.6 mIU/mL Performed By: #### M 200.1000 #### [facility] [address] [place], [place], [address] T4 Free Directon 04-11-2024 T4 FREE DIRECT 0.80 ng/dL Normal 0.76-1.46 [facility] Comment on above: Order Comment: CYTOL OGY INFORMATION:- CLINICAL INFORMATION: ANNUAL - Non - DATE LMP/MENOPAUSE: N/A- COLLECTION VIAL: Thin Prep Vial- SCRAP PREPARATION SUPERVISOR SOURCE: CERVICAL/ENDOCERVICAL- COLLECTION TECHNIQUE: BRUSH/SPATULAN Performed By: #### M 200.1000 #### [facility] [address] [place], [place], [id number] Thyroid Stim Hormone (TSH)on 04-11-2024 TSH 3.920 uIU/mL High 0.358-3.740 [facility] Comment on above: Order Comment: CYTOL OGY INFORMATION:- CLINICAL INFORMATION: ANNUAL - Non - DATE LMP/MENOPAUSE: N/A- COLLECTION VIAL: Thin Prep Vial- SCRAP PREPARATION SUPERVISOR SOURCE: CERVICAL/ENDOCERVICAL- COLLECTION TECHNIQUE: BRUSH/SPATULAN Performed By: #### M 200.1000 #### [facility] [address] [place], [place], [address] Urgent Care Visit Reporton 1 Urgent Care Visit Report [facility] [address], [address] [place], [place] [address] OFFICE VISIT Date of Service: 07/07/23 MR#: [id number] Acct: [id number] Name: AILEEN ANGULO Rep #: [id number] : 1985 Provider: FRANNY Hsu Age/Sex: 38/F [place] [facility] [place] Status: Signed Intake Intake Visit Reasons: COVID-19 Chief Complaint: Fever, cough Allergies amoxicillin Allergy (Verified 08/25/19 09:47) Hives cefaclor (From Ceclor) Allergy (Verified 08/25/19 09:47) Hives PFSH Family History (Updated 08/25/19 @ 09:48 by Catarino Jose) Other Hypertension Social History (Updated 08/25/19 @ 11:19 by Herminio BLANTON, PA) Smoking Status: Never smoker HPI HPI Chief Complaint: Fever, cough Details: AILEEN ANGULO, is a 38 F who presents to the office today for Results POC CEPH COV,FluAB,RSV PCR CEPHEID COVID PCR Not DETECTED Last Edit by Bhumika Meyer on 07/07/23 11:01 CEPHEID FLU AB PCR NOT DETECTED FLU A B Last Edit by Bhumika Meyer on 07/07/23 11:01 CEPHEID RSV PCR NOT DETECTED Last Edit by Bhumika Meyer on 07/07/23 11:01 Coding Level of Care Code Attention Hosiery Knitter Assessment and Plan Assessment and Plan Orders: Orders POC Cepheid Covid, FluAB, RSV 07/07/23 R53.83 - Other fatigue 03/29/24 1250 Date Herminio BLANTON Cosigner Signature: Date (if applicable) CC: Normal [facility] Basophil percentageOrdered B y: Lotus Sagastume on 07-15-2023 Bilirubin [Mass/Vol] 0.40 mg/dL 0.20-1.[address] [facility] Comment on above: For patients on eltr ombopag therapy, use of Dimension Naches TBIL is not recommended. Chloride [Moles/Vol] 107 mmol/L 98-[address] [facility] Cholesterol [Mass/Vol] 237 mg/dL <200 [facility] Comment on above: <200 mg/dL Desirable 200-240 mg/dL Borderline >240 mg/dL High Risk Glucose [Mass/Vol] 118 mg/dL 74-106 [facility] Comment on above: Fasting Glucose resu lt from 100 to 125 mg/dL suggests IMPAIRED HOMEOSTASIS per A.D.A. criteria. Potassium [Moles/Vol] 3.9 mmol/L 3.5-5.1 [facility] Protein [Mass/Vol] 8.5 g/dL 6.4-8.2 [facility] Sodium [Moles/Vol] 138 mmol/L 136-145 [facility] Triglyceride [Mass/Vol] 280 mg/dL <199 [facility] Comment on above: The drugs N-Acetylcy steine and Metamizole may falsely depress this assay.Serum Triglycerides Reference Interval Normal <150 mg/dL Borderline high 150 - 199 mg/dL High 200 - 499 mg/dL Very High > or = 500 mg/dL Laboratory - Chemistry and C hemistry - challengeOrdered By: Lotus Sagastume on 07-15-2023 Albumin/Globulin [Mass ratio] 0.8 {ratio} 0.9-2.4 [facility] ALP [Catalytic activity/Vol] 70 U/L 45-117 [facility] ALT [Catalytic activity/Vol] 45 U/L 13-56 [facility] Cholesterol in HDL (Body fld) [Mass/Vol] 38 mg/dL >40 [facility] Comment on above: The drugs N-Acetylcy steine and Metamizole may falsely depress this assay. Reference Range HDL <40 mg/dL Low HDL Cholesterol HDL >or= 60 mg/dL High HDL Cholesterol Cholesterol in LDL (Body fld) [Moles/Vol] 143 mg/dL 0-130 [facility] Cholesterol in VLDL Calc [Moles/Vol] 56 mg/dL 5-40 [facility] CO2 [Moles/Vol] 24.0 mmol/L 21.0-32.0 [facility] Globulin (S) [Mass/Vol] 4.6 g/dL 2.2-4.2 [facility] Urea nitrogen/Creatinine [Mass ratio] 11.7 mg/mg 10-20 [facility] No Panel InformationOrdered By: Lotus Sagastume on 07-15-2023 Estimated GFR (MDRD) Amer 97 mL/min >60 [facility] Comment on above: GFR Calc Estimated GFR (MDRD) Non-Af Amer 80 mL/min >60 [facility] Comment on above: Non- GFR Calc Free Triiodothyronine (T3) pg/dL 2.6 pg/mL 2.18-3.98 [facility] Serum or plasma calcium gokul urement (mass/volume)Ordered By: Lotus Sagastume on 07-15-2023 Calcium [Mass/Vol] 9.7 mg/dL 8.5-10.1 [facility] Serum or plasma creatinine m easurement (mass/volume)Ordered By: Lotus Sagastume on 07-15-2023 Creatinine [Mass/Vol] 0.86 mg/dL 0.55-1.02 [facility] Comment on above: The validity of the calculated GFR & GFRAA in patients over 70 years has not been determined. Clinical correlation is essential. Serum or plasma thyroid stim ulating hormone (TSH) measurement (units/volume)Ordered By: Lotus Sagastume on 07-15-2023 TSH Qn 3.69 uIU/mL 0.358-3.74 [facility] Serum or plasma urea nitroge n measurement (mass/volume)Ordered By: Lotus Sagastume on 07-15-2023 Urea nitrogen [Mass/Vol] 10 mg/dL 7-18 [facility] Thin prep Papanicolaou smear with manual screeningOrdered By: Lotus Sagastume on 07-15-2023 Thin prep Papanicolaou smear with manual screening 3.9 g/dL 3.2-5.0 [facility] Thin prep Papanicolaou smear with manual screening 25 U/L 15-37 [facility] Thin prep Papanicolaou smear with manual screening 7 5-15 [facility] Thin prep Papanicolaou smear with manual screening 0.89 ng/dL 0.76-1.46 [facility] - Microbiology an d Antimicrobial susceptibilityon 07-07-2023 SARS-CoV-2 (COVID-19) RNA BENJAMIN+probe Ql (Unsp spec) Not detected [facility] No Panel Informationon 07-07 POC Nasal Swab Influenza A,B Not detected [facility] POC Nasal Swab RSV Not detected [facility] - Chemistry and C hemistry - challengeOrdered By: Lotus Sagastume on 01-06-2023 Free T4 [Mass/Vol] 0.91 ng/dL 0.76-1.46 [facility] No Panel InformationOrdered By: Lotus Sagastume on 01-06-2023 Thyroglobulin Antibody 2.1 IU/mL 0.0-0.9 [facility] Comment on above: Thyroglobulin Antibo dy measured by TravelerCarMethodologyPerformed at: CB - [facility] [address] [id number] Director: Cam De Souza PhD, Phone: [phone] Free Triiodothyronine (T3) pg/dL 2.5 pg/mL 2.18-3.98 [facility] Thyroid Stimulating Hormone (TSH) 1.46 uIU/mL 0.358-3.74 [facility] Serum or plasma thyroperoxid ase antibody assay (units/volume)Ordered By: Lotus Sagastume on 01-06-2023 TPO Ab Qn [IU]/mL 0-34 [facility] Whole blood hemoglobin A1c/t otal hemoglobin ratio (mass fraction)Ordered By: Lotus Sagastume on 01-06-2023 HbA1c (Bld) [Mass fraction] 5.5 % 3.8-5.6 [facility] Comment on above: Normal < 5.7 % Predi abetic 5.7 - 6.4 % Diabetic >or= 6.5 % Please note range changes. Encounters Encounter Date Encounter Type Care Provider Facility Start: 02-16-2025 ambulatory Sandra Ortega Facility :[facility] Start: 07-05-2024 End: 07-05-2024 Emergency department patient visit Jean Claude Goodson Facility:[facility] Start: 05-02-2024 End: 05-02-[facility] Start: 04-12-2024 End: 04-12-2024 ambulatory Lotus Sagastume [place] [place] Start: 04-11-2024 End: 04-11-2024 ambulatory Lotus Sagastume Facility:[facility] Start: 07-15-2023 End: 07-15-[address] Lotus Sagastume Work Phone: [facility] Work Phone: Start: 07-15-2023 End: 07-15-[address] Lotus Sagastume Work Phone: [facility] Work Phone: Start: 07-07-2023 End: 07-07-[address] Lotus Sagastume Work Phone: [facility] Work Phone: Start: 01-06-2023 End: 01-06-2023 ambulatory [facility] Work Phone: Start: 01-06-2023 End: 01-06-2023 Patient encounter procedure [facility],Fut ure Work Phone: Immunizations Immunization Date Immunization Notes Care Provider [facility] 04-09-2023 influenza, injectabl e, quadrivalent, preservative free Dr. Lotus Sagastume Work Phone: [facility] 04-14-2022 influenza, injectabl e, quadrivalent, preservative free Dr. Lotus Sagastume Work Phone: [facility] 04-14-2022 influenza, seasonal, injectable [facility] 03-22-2021 influenza, injectabl e, quadrivalent, preservative free Dr. Lotus Sagastume Work Phone: [facility] 03-22-2021 influenza, seasonal, injectable [facility] 10-04-2020 Covid (Pfizer) [facility] 04-07-2019 influenza, injectabl e, quadrivalent, preservative free Dr. Lotus Sagastume Work Phone: [facility] 04-07-2019 influenza, seasonal, injectable [facility] 03-22-2018 influenza, injectabl e, quadrivalent, preservative free Dr. Lotus Sagastume Work Phone: [facility] 03-22-2018 influenza, seasonal, injectable [facility] 03-19-2017 influenza, injectabl e, quadrivalent, preservative free Dr. Lotus Sagastume Work Phone: [facility] 03-19-2017 influenza, seasonal, injectable [facility] 03-28-2016 influenza, injectabl e, quadrivalent, preservative free Dr. Lotus Sagastume Work Phone: [facility] 03-28-2016 influenza, seasonal, injectable [facility] 03-23-2015 influenza, injectabl e, quadrivalent, preservative free Dr. Lotus Sagastume Work Phone: [facility] 03-23-2015 influenza, seasonal, injectable [facility] 03-08-2014 influenza, injectabl e, quadrivalent, preservative free Dr. Lotus Sagastume Work Phone: [facility] 03-08-2014 influenza, seasonal, injectable [facility] 10-05-2013 varicella virus vaccine [facility] 08-22-2013 tetanus toxoid, redu jose diphtheria toxoid, and acellular pertussis vaccine, adsorbed [facility] 08-22-2013 varicella virus vaccine [facility] Payers Date Payer Category Payer Private Health Insurance [id number] 2024 Self-pay [id number] Private Health Insurance [employer] [id number] Unknown [id number] Unknown [id number] Unknown [id number] [id number] Unknown [id number] [id number] [id number] Unknown [id number] [id number] Social History Date Type Detail Facility Start: 08-25-2019 End: 08-25-2019 Tobacco smoking status NHIS Unknown if ever smoked [facility] Start: 1985 Sex Assigned At Female [facility] Evaluation note Note Date & Type Note Facility Evaluation note No assessment information availa ble [facility] Work Phone: Advance Directives No Advanced Directives Records Found Advance Directive Response Recorded Date/ Time Living Will No November 19, 2016 8 :45am Power of Show Dog Trainer No November 19, 2016 8:45am Advance Directive Response Recorded Date/ Time Living Will No November 19, 2016 7 :45am Power of Show Dog Trainer No November 19, 2016 7:45am Chief Complaint and Reason for Visit Chief Complaint COVID-19 Summary Purpose Family History No Family History Records Found Additional Source Comments Care Teams (unrecognized sec tion and content) Team Status: Active Member Role Status Dates Dr. Lotus Sagastume DO Family Provider Active Dr. Lotus Sagastume DO Primary Care Provider Active Team Status: Inactive Member Role Status Dates Dr. Lotus Sagastume DO Primary Care Provide r, Attending Provider, Referring Provider Active Team Status: Inactive Member Role Status Dates Dr. Lotus Sagastume DO Primary Care Provider, Referring P sue Active Herminio Tee PA, PA Attending Provider Active Team Status: Inactive Member Role Status Dates Dr. Lotsu Sagastume DO Primary Care Provider, Attending P sue Active Goals (unrecognized section and content) Goals may be documented in a n alternate sectionGoals may be documented in an alternate section INFORMATION SOURCE (unrecogn ized section and content) DATE CREATED AUTHOR 02/18/2025 [facility] FOR RECORDS PERTAINING TO PATIENTS WHO ARE OR HAVE BEEN ENROLLED IN A CHEMICAL DEPENDENCY/SUBSTANCEABUSE PROGRAM, SOME INFORMATION MAY BE OMITTED. This clinical summary was aggregated from multiple sources. Caution should be exercised in using it in the provision of clinical care. This summary normalizes information from multiple sources, and as a consequence, information in this document may materially change the coding, format and clinical context of patient data. In addition, data may be omitted in some cases. CLINICAL DECISIONS SHOULD BE BASED ON THE PRIMARY CLINICAL RECORDS. [facility] provides no warranty or guarantee of the accuracy or completeness of information in this document.
== END | disposition home or self-care (01) ==
LOC: LAB 09:14
PROVIDERS: PCP Family Medicine; Referring Provider Nurse Practitioner Family; Visit Provider Nurse Practitioner Family
DX: E16.1 Other hypoglycemia (principal)
CPT/HCPCS: 36415; 83036